=== PATIENT | female | born 1995 | race Caucasian/White ===

== ENCOUNTER 2016-08-14 11:09 | Emergency (ER) | payer MEDICARE ==
[~2016-08-14 11:09] MED LIST: DOC-Q-LACE100 MG PO; HYDROCODON-ACE1 EAC4 PO; IBUPROFEN600 MG PO
== END 2016-08-14 14:07 | disposition home or self-care (01) ==
LOC: ER1 11:09
DX: L50.1 Idiopathic urticaria (principal); Z91.040 Latex allergy status
CPT/HCPCS: 96372; 99282; J1100; Q0163

== ENCOUNTER → 2016-08-20 | Outpatient (CLI) | payer MEDICARE | LOC: KOH-I 15:14 | DX: M41.9 Scoliosis, unspecified (principal) | CPT/HCPCS: 72080 ==

== ENCOUNTER 2020-08-13 10:19 | Emergency (ER) | payer OTHER ==
[~2020-08-13 10:19] MED LIST changes: +MEDROL4 MG PO
== END 2020-08-13 14:20 | disposition home or self-care (01) ==
LOC: ER1 10:19
DX: S02.2XXA Fracture of nasal bones, initial encounter for closed fracture (principal); M25.571 Pain in right ankle and joints of right foot; Z23 Encounter for immunization; Z91.041 Radiographic dye allergy status; Z91.040 Latex allergy status; Z88.5 Allergy status to narcotic agent; Z86.79 Personal history of other diseases of the circulatory system; W01.0XXA Fall on same level from slipping, tripping and stumbling without subsequent striking against object, initial encounter
CPT/HCPCS: 70450; 70486; 73610; 84703; 90471; 90715; 99284